=== PATIENT | male | born 2000 | race Caucasian/White ===

== ENCOUNTER 2023-02-28 10:55 | Outpatient (AMB) | payer BC, SELFPAY ==
--- NOTE | 2023-02-28 10:56 | A.OFFVIS_ITS ---
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 Today he complains of neck pain. Patient reports that he has been having ongoing neck pain for about 8 years now with no previous injury. He states that he has been able to ?crack? his neck for several years. Patient states that he is quite flexible. He has tried returning to the gym to work out. He states that his neck and both of his shoulders will ?pop? pop so loud that other people in the gym can not hear it. He also reports intermittent low back pain as well as shoulder pains. He has tried Tylenol and anti-inflammatory medicines which gave him minimal relief. He denies any chest pain or vision problems. Allergies dust mites Adverse Reaction (Uncoded 02/28/23 11:03) Unknown Medication List - Last Reconciled 02/28/23 by Timothy Pandey MD [facility] Social History (Updated 02/28/23 @ 11:04 by Shirley Lee [facility]) Current occupational status: employed Current occupation: [employer] Physical Exam Vital Signs: BMI result Body Mass Index 18.8 Const Other: Well-nourished well-developed very friendly male awake alert and oriented x3 in no acute distress Neck Other: Cervical spine examination shows bilateral paraspinal muscle tenderness, palpable crepitus with range of motion, positive Spurling's test Results Reviewed Results Reviewed: X-rays of the patient's cervical spine show mild diffuse degenerative disc disease, no acute bony abnormalities Assessment & Plan Assessment & Plan (1) Neck pain: Code(s): M54.2 - Cervicalgia Plan Mr. Ruelas presents with neck pain possibly due to early degenerative disc disease or disc herniation. I did give the patient a prescription for a Medrol Dosepak. I will also order an MRI to help rule out cervical stenosis or disc herniation. The patient does have the physical attributes of Marfan syndrome. I will contact the [facility] at [facility] for further information regarding blood work or indicated imaging studies. I will contact the patient with that information. Feel free to call me at any time should questions regarding his orthopedic management arise. Thank you very much for asking me to see this very friendly gentleman. I spent 22 minutes in reviewing the patient's records and imaging studies, seeing the patient and documenting in the medical record. Orders: Orders XR cervical spine 2V Today M54.2 - Cervicalgia Coding Level of Care Code New Pt Level 2 (63741) Diagnoses Neck pain M54.2
[2023-02-28 11:04] VITALS: BMI 18.8
== END 2023-02-28 11:55 | disposition home or self-care (01) ==
PROVIDERS: PCP Pediatrics; Visit Provider Orthopaedic Surgery
DX: M54.2 Cervicalgia (principal)
CPT/HCPCS: 99202

== ENCOUNTER 2023-03-01 | Outpatient (REF) | payer BC, SELFPAY ==
--- NOTE | ~2023-03-01 | XR_ITS ---
EXAMINATION: XR CERVICAL SPINE CLINICAL INFORMATION: Cervicalgia COMPARISON: None available. TECHNIQUE: AP and lateral views of the cervical spine were obtained. FINDINGS: Mineralization is normal. There is no fracture or malalignment. The posterior elements are intact. The disc spaces are preserved. The prevertebral and paravertebral soft tissues appear unremarkable. XR/XR cervical spine 2V IMPRESSION: Unremarkable examination.
== END 2023-03-01 00:01 | disposition home or self-care (01) ==
LOC: HO.HOSX
PROVIDERS: Visit Provider Orthopaedic Surgery
DX: M54.2 Cervicalgia (principal)
CPT/HCPCS: 72040